=== PATIENT | female | born 1965 | race Caucasian/White ===

== ENCOUNTER 2020-11-22 14:27 | Outpatient (RCR) | payer OTHER, SELFPAY | END 2021-01-08 23:59 | LOC: IMMUN 14:27 | PROVIDERS: PCP Family Medicine; Referring Provider Family Medicine; Visit Provider Family Medicine | DX: Z23 Encounter for immunization (principal) | CPT/HCPCS: 0001A; 0002A; 91300 ==

== ENCOUNTER → 2021-01-17 14:37 | Outpatient (CLI) | payer OTHER, SELFPAY ==
--- NOTE | 2021-01-17 14:42 | CT_ITS ---
STUDY: CT FACIAL BONES WITH CONTRAST REASON FOR EXAM: Female, 55 years old. L NASOLACRIMAL OBSTRUCTION RADIATION DOSAGE (If Supplied By Facility): CTDIvol = ( 29.38 ) mGy, DLP = ( 628.26 ) mGycm TECHNIQUE: The patient was scanned in a multi detector CT scanner. Transaxial imaging was performed following the intravenous administration of IV 100mL Isovue-300. Sagittal and coronal images were reconstructed. Individualized dose optimization techniques were used for this CT. COMPARISON: None. FINDINGS: Mildly enlarged heterogeneous appearance of the right and left lobe of the thyroid gland. There is focal soft tissue density in the region of the left nasal lacrimal duct measuring 8.1 mm x 7.6 mm. This may represent the obstructing left nasolacrimal duct. Normal orbital bosch and orbital contents. Normal nasal bones and anterior nasal spine. Normal facial bones. There is no demonstrated fracture. Normal visualized paranasal sinuses. CT/Sinus/Facial Bone WITH Contras IMPRESSION: Soft tissue density seen in the region of the left nasal lacrimal duct as described. Electronically Signed: Kendall Lanier MD at 15:17 EDT , Service support ,
== END ==
PROVIDERS: PCP Family Medicine; Referring Provider Ophthalmology; Visit Provider Ophthalmology
DX: H04.552 Acquired stenosis of left nasolacrimal duct (principal)
CPT/HCPCS: 70487; Q9967

== ENCOUNTER → 2021-01-22 09:45 | Outpatient (CLI) | payer OTHER, SELFPAY ==
[2021-01-22 13:02] LABS: Thyroid Stim Hormone (TSH) 1.55 uIU/mL (0.358-3.74)
[2021-01-23 18:35] LABS: Thyroglobulin Antibody < 1.0 IU/mL (0.0-0.9); Thyroid Peroxidase AB < 9 IU/mL (0-34)
== END ==
PROVIDERS: PCP Family Medicine; Referring Provider Otolaryngology; Visit Provider Otolaryngology
DX: E04.9 Nontoxic goiter, unspecified (principal)
CPT/HCPCS: 36415; 84443; 86376; 86800

== ENCOUNTER → 2021-01-25 15:28 | Outpatient (CLI) | payer OTHER, SELFPAY ==
--- NOTE | 2021-01-25 15:31 | US_ITS ---
STUDY: THYROID ULTRASOUND REASON FOR EXAM: Female, 55 years old. GOITER TECHNIQUE: Ultrasound evaluation of the thyroid was performed with real-time and static edouard-scale imaging. COMPARISON: CT facial bones 01/17/2021 FINDINGS: RIGHT LOBE: The right lobe of the thyroid gland measures 5.7 x 2.1 x 1.4 cm. There is a heterogeneous echotexture. There are multiple hypoechoic or cystic subcentimeter structures within the right thyroid least one with coarse calcification. The largest of which measures 5 x 3 x 3 mm and 5 x 4 x 4 mm. There is increased vascularity. LEFT LOBE: The left lobe of the thyroid gland measures 5.5 x 2.1 x 1.3 cm. There is a heterogeneous echotexture. There is an hypoechoic nodule in the midpole measuring 1.1 x 0 0.9 to 0.7 cm. There is heterogeneous, solid and cystic component nodule measuring 1.2 x 0.9 x 0.7 cm inferiorly. Superiorly there is a cystic 3 x 5 x 2 mm structure. ISTHMUS: The isthmus measures 2 mm. . The regional lymph nodes are normal. US/Thyroid IMPRESSION: Heterogeneous increased vascularity of the bilateral thyroid lobes. On the left side there is a inhomogeneous focus measuring 1.2 x 0.9 x 0.7 cm. The overall appearance findings are suspicious for multinodular goiter however could consider biopsy of the most heterogeneous mass within the left thyroid for further evaluation if appropriate. Comparison to prior study would be helpful to establish stability. Electronically Signed: Rowena Hamilton MD at 4:55 EDT Tel , Service support ,
== END ==
PROVIDERS: PCP Family Medicine; Referring Provider Otolaryngology; Visit Provider Otolaryngology
DX: E04.9 Nontoxic goiter, unspecified (principal)
CPT/HCPCS: 76536

== ENCOUNTER → 2021-02-04 | Outpatient (CLI) | payer OTHER, SELFPAY ==
--- NOTE | 2021-02-04 | TISS_PTH ---
PATIENT: DENISE MCCLELLAND LOC: [facility]#:[id number] AGE/SX: 55/F ROOM: RE02/04/[address]: Dr. Monroe Balderrama MD : 1965 BED: DIS: 02/04/2021 SPEC #: [id number] RECD: 02/04/21 12:23 STATUS: ALLI REVandana #: [id number] CARLITO: 02/04/21 00:[address]: Monroe Balderrama DEPT: SURGICAL PATHOLOGY RECD BY: More Hoff ENTERED: 02/05/21 07:56 SP TYPE: Tissue Bx OT DR: Dr. Doc Barron DO Tissues: TISSUE SURGICALLY REMOVED Procedures: Special Stain Group I Surgery Specimen Level IV GMS Stain (control) HEADER OPERATION: FNA biopsy PRE-OP DIAGNOSIS: Mass lacrimal duct TISSUE SUBMITTED: Left tear duct MICROSCOPIC DIAGNOSIS Mass of left lacrimal duct, fine needle aspiration (cell block): Fibrinoid material and degenerating cellular debris. Dystrophic microcalcifications. Negative for fungal organisms. See comment. AM:sophia 02/06/2021 COMMENT GMS stain with matched control was used in the evaluation of this case. MICROSCOPIC DESCRIPTION Slides are reviewed. GROSS DESCRIPTION Received in fixative is one container labeled with the patient's name and designated left tear duct. The specimen consists of minute fragments of clear to white particles measuring in aggregate 0.1 x <0.1 x <0.1 cm. The specimen is submitted in its entirety for cell block preparation. / AM:sophia 02/05/21 TC:2 CPT: 11649, 21950
== END | disposition home or self-care (01) ==
LOC: LABSPEC 12:28
PROVIDERS: PCP Family Medicine; Visit Provider Otolaryngology
DX: H04.89 Other disorders of lacrimal system (principal)
CPT/HCPCS: 88305; 88312

== ENCOUNTER 2021-09-16 10:38 | Outpatient (CLI) | payer OTHER, SELFPAY ==
--- NOTE | 2021-09-16 10:47 | US_ITS ---
STUDY: THYROID ULTRASOUND REASON FOR EXAM: Female, 56 years old. Nontoxic goiter. TECHNIQUE: Ultrasound evaluation of the thyroid was performed with real-time and static edouard-scale imaging. COMPARISON: Comparison is made with prior study dated 01/25/2021. FINDINGS: RIGHT LOBE: The right lobe of the thyroid gland is enlarged and measures 5.6 cm x 2 cm x 1.8 cm. There is a heterogeneous echotexture. Once again, there are multiple small hypoechoic or cystic subcentimeter structures within the right lobe. The largest measures 7 mm x 4 mm x 4 mm. This is essentially unchanged. LEFT LOBE: The left lobe of the thyroid gland is enlarged and measures 5.5 cm x 1.8 cm x 2 cm. There is a heterogeneous echotexture. Once again, multiple solid and cystic nodules are seen. The largest nodule measures 1.2 cm x 0.9 cm x 0.6 cm. This is seen in the lower pole. This is unchanged. ISTHMUS: The isthmus measures 2 mm. The regional lymph nodes are normal. US/Thyroid IMPRESSION: Stable enlargement of both lobes of the thyroid gland with heterogeneous echotexture. Stable bilateral cysts and solid nodules the largest is in the left lobe and is unchanged. Electronically Signed: Kendall Lanier MD at 10:59 EST ,
== END 2021-09-16 23:59 | disposition home or self-care (01) ==
PROVIDERS: PCP Family Medicine; Referring Provider Otolaryngology; Visit Provider Otolaryngology
DX: E04.9 Nontoxic goiter, unspecified (principal)
CPT/HCPCS: 76536

== ENCOUNTER → 2025-06-21 | Outpatient (CLI) | payer OTHER, SELFPAY ==
[2025-06-21 15:51] LABS: Anion Gap 10 (5-15); BUN 8 mg/dL (4-19); BUN/Creat Ratio 9.2 RATIO (10-20); Calcium,Total 10.1 mg/dL (7.6-11.0); Carbon Dioxide 23.8 mmol/L (21.0-32.0); Chloride 106 mmol/L (98-108); Cholesterol 257 mg/dL (<=200); Free T3 3.3 pg/mL (2.18-3.98); Glucose 98 mg/dL (70-99); Low Density Lipoprotein Calc. 172 mg/dL; Potassium 4.1 mmol/L (3.3-5.1); Triglycerides 142 mg/dL; Very Low Density Lipoprotein 28 mg/dL (5-40); cholesterol:hdl ratio screen 4.34
== END | disposition home or self-care (01) ==
LOC: MFPLAB 11:51
PROVIDERS: PCP Family Medicine; Visit Provider Family Medicine
DX: Z00.00 Encounter for general adult medical examination without abnormal findings (principal); E04.1 Nontoxic single thyroid nodule
CPT/HCPCS: 36415; 80048; 80061; 84439; 84443; 84481